=== PATIENT | male | born 1945 | race Caucasian/White ===

== ENCOUNTER 2017-05-28 11:09 | Emergency (ER) | payer MEDICARE, OTHER ==
[2017-05-28] MEDS ORDERED: Sulfameth/Trimethoprim DS 800-160mg TAB ONE (12:12)
[2017-05-28] MEDS ORDERED: Ciprofloxacin 500 MG TAB ONE (12:12)
== END 2017-05-28 12:15 | disposition home or self-care (01) ==
LOC: MADERS 11:09
DX: L03.113 Cellulitis of right upper limb (principal); I25.10 Atherosclerotic heart disease of native coronary artery without angina pectoris; Z79.899 Other long term (current) drug therapy
CPT/HCPCS: 99283